=== PATIENT | female | born 1965 | race Caucasian/White ===

== ENCOUNTER → 2017-08-16 15:51 | Outpatient (CLI) | payer OTHER, SELFPAY ==
--- NOTE | 2017-08-16 | DI.CT.S_ITS ---
PROCEDURE: CT ABDOMEN PELVIS W CON INDICATIONS: ABDOMINAL PAIN LEFT LOWER QUADRANT TECHNIQUE: After the administration of oral and intravenous contrast, 5 mm thick sections acquired from the diaphragms to the symphysis. 5 mm thick coronal and sagittal reformats were performed. For radiation dose reduction, the following was used: automated exposure control, adjustment of mA and/or kV according to patient size. COMPARISON: None. FINDINGS: Image quality: Excellent. ABDOMEN: Lung bases: Lung bases are clear. Heart size is normal. Solid organs: Liver is normal in size and enhancement. Gallbladder demonstrates calculi within its lumen, but no evidence of wall thickening, or surrounding inflammation. Biliary system is non-dilated. Pancreas enhances normally. Spleen is normal in size and enhancement. No adrenal nodules. Kidneys are normal in size and enhancement, without hydronephrosis. Peritoneum and bowel: Stomach, small bowel, and colon loops are normal in caliber and wall thickness. No free fluid or air. Appendix not seen. No evidence of appendicitis. Nodes and vessels: No retroperitoneal or mesenteric adenopathy. Aorta and inferior vena cava are normal in caliber. Miscellaneous: No ventral hernias. PELVIS: Genitourinary: Bladder wall thickness is normal. Miscellaneous: No inguinal hernias or adenopathy. Bones: No suspicious bony lesions. No vertebral body compression fractures. IMPRESSION: 1. No acute process. No explanation for left lower quadrant pain. 2. Cholelithiasis. Dictated by: Jose Casas M.D. on 08/16/2017 at 17:26 Approved by: Jose Casas M.D. on 08/16/2017 at 17:28
== END ==
PROVIDERS: PCP Family Medicine; Visit Provider Physician Assistant Medical
DX: R10.32 Left lower quadrant pain (principal); K80.20 Calculus of gallbladder without cholecystitis without obstruction
CPT/HCPCS: 74177; Q9967

== ENCOUNTER 2017-08-17 08:26 | Observation (INO) | payer OTHER, SELFPAY ==
[2017-08-17] VITALS (16 sets, daily range): BP systolic 102–130; BP diastolic 54–69; PULSE 83–90; RESP 13–18; TEMP 37–39.2; O2SAT 94–99; BMI 34.3
--- NOTE | 2017-08-17 08:29 | ED.SKABFB ---
HPI - Skin/Abscess/Foreign Bdy General Chief complaint: Weakness Stated complaint: 'STAPH INFECTION/BLOOD DISEASE' Time Seen by Provider: 08/17/17 08:29 Source: patient Mode of arrival: ambulatory Limitations: no limitations History of Present Illness HPI narrative: 52-year-old female sent in by her primary care doctor's office for concern for a ?blood infection or sepsis ?patient states that approximately 1 week ago a ?boil? on her buttock spontaneously ruptured. She states that it has been worsening over the 3 days prior to that. She states that currently the that site has been improving. She went to see her primary doctor last Wednesday and during that exam apparently had left lower quadrant abdominal pain. Had a CT scan of the abdomen and pelvis with IV and oral contrast performed yesterday which showed cholelithiasis and no other abnormal findings. Patient states she has not been feeling well for the past couple days. Has had a decreased oral intake. Had blood work drawn this morning from the primary doctor it was called by the primary doctor to come in to the emergency department. Related Data Allergies Allergy/AdvReac Type Severity Reaction Status Date / Time erythromycin base Allergy Verified 08/17/17 08:46 Penicillins Allergy Verified 08/17/17 08:46 Review of Systems Constitutional Denies chills, Reports fatigue, Reports fever(s), Denies frequent falls and Reports malaise ENT Ears, Nose, Mouth, and Throat: Denies vertigo and Denies dizziness Cardiovascular Denies chest pain, Denies palpitations and Reports dyspnea Respiratory Reports cough, Reports pain on inspiration, Reports dyspnea and Denies wheezing Gastrointestinal Gastrointestinal: Reports abdominal pain (Abdominal pain a couple days ago but nothing now), Denies change in bowel habits, Denies diarrhea, Denies nausea and Denies vomiting Genitourinary Denies dysuria and Denies flank pain Musculoskeletal Denies myalgias and Denies arthralgias Integumentary/Breasts Comments: ?Boil? on her buttocks which she states is improving Neurologic Denies confusion, Denies vertigo, Denies dizziness and Denies frequent falls Psychiatric Denies confusion Endocrine Reports fatigue and Denies palpitations Hematologic/Lymphatic Denies easy bleeding and Denies easy bruising Allergic/Immunologic Denies wheezing Exam Initial Vital Signs Initial Vital Signs: Vital Signs Temperature 101.5 F H 08/17/17 08:42 Pulse Rate 90 08/17/17 08:42 Respiratory Rate 13 08/17/17 08:42 Blood Pressure 113/60 08/17/17 08:42 Pulse Oximetry 97 08/17/17 08:42 Const General: cooperative, healthy appearing, comfortable, well developed, well groomed and No acute distress Nutritional Appearance: average body habitus Orientation: alert, awake and oriented x3 HENMT Head: normal to inspection, normocephalic and atraumatic Resp Effort & Inspection: normal respiratory effort Auscultation: clear to auscultation bilaterally Cardio Rate: regular rate Rhythm: regular rhythm Pulses: radial pulses present GI Inspection: non-distended Palpation: soft, No firm and No tender Other: Right side buttocks where patient states she had the ?boil in the past looks well. No surrounding erythema. No drainage. No fluctuance. No induration. Back/Spine/Pelvis Back: No CVA tenderness Cervical Spine: cervical ROM normal and No pain with cervical ROM Thoracic/Lumbar Spine: thoracic and lumbar spine normal to inspection Skin Lesions: no lesions Rashes: no rashes Neuro General: alert, awake and oriented x3 Extrem General: normal to inspection and capillary refill normal Course Orders Ordered: ED Orders 08/17/17 08:35 Complete Blood Count AUTO DIFF Stat Comprehensive Metabolic Panel Stat Lactate (Lactic Acid) Stat Lipase Stat Procalcitonin Stat 08/17/17 08:55 XR chest 1V Stat Urine Culture Stat Urine Culture Stat Urine Microscopic Stat EKG-12 Lead Stat 08/17/17 08:58 Blood Culture Stat Ceftriaxone Sodium/Dextrose (Rocephin) 1 gm in 50 mls @ 100 mls/hr IV NOW ONE Stop: 08/17/17 10:39 Last Admin: 08/17/17 10:22 Dose: 100 mls/hr Discontinued Medications Acetaminophen (Tylenol) 650 mg PO NOW ONE Stop: 08/17/17 08:36 Last Admin: 08/17/17 08:45 Dose: 650 mg Sodium Chloride (Normal Saline 0.9%) 1,000 mls @ 1,000 mls/hr IV BOLUS ONE Stop: 08/17/17 09:34 Last Admin: 08/17/17 08:45 Dose: 1,000 mls/hr Vital Signs - 8 hr 08/17/17 08:42 Temperature 101.5 F H Pulse Rate 90 Respiratory Rate 13 Blood Pressure 113/60 Pulse Oximetry 97 MDM - Skin/Abscess/Foreign Bdy Medical Records Attestation: I reviewed the patient's medical records. Lab Data Attestation: I reviewed the patient's lab results. Result diagrams: 08/17/17 08:35 08/17/17 08:35 Lab Results 08/17/17 08/17/17 08/17/17 Range/Units 08:35 08:35 08:35 WBC 12.0 H (4.5-11.0) X10^3/uL RBC 4.15 (4.0-5.2) X10^6/uL Hgb 13.1 (12.0-16.0) g/dL Hct 38.0 (36-46) % MCV 91.6 (80-100) fL MCH 31.4 (26-34) PG MCHC 34.3 (30-36) % RDW 12.7 (11.6-14.8) % Plt Count 217 (150-400) X10^3/uL Neut % (Auto) 94.1 H (50-75) % Lymph % (Auto) 3.2 L (25-40) % [place] % (Auto) 2.4 L (3-14) % Eos % (Auto) 0.1 L (2-4) % Baso % (Auto) 0.2 (0-2) % Neut # (Auto) 57633 H (5420-7004) /uL Sodium (137-145) mmol/L Potassium (3.4-5.1) mmol/L Chloride (98-107) mmol/L Carbon Dioxide (22-32) mmol/L BUN (7-17) mg/dL Creatinine (0.52-1.04) mg/dL Estimated GFR (>60) mL/min BUN/Creatinine Ratio (6-22) Glucose (70-100) mg/dL Lactate 1.1 (0.7-2.1) mmol/L Calcium (8.4-10.2) mg/dL Total Bilirubin (0.2-1.3) mg/dL AST (14-36) IU/L ALT (9-52) IU/L Alkaline Phosphatase (38-126) U/L Total Protein (6.3-8.2) g/dL Albumin (3.5-5.0) g/dL Globulin (1.7-4.1) g/dL Albumin/Globulin Ratio (1.0-2.8) Lipase (23-300) U/L Procalcitonin 5.64 H (<0.5) ng/mL Urine RBC (0-5/HPF) Urine WBC (0-5/HPF) Urine Bacteria (None) Ur Culture Indicated? Micro UA Comment 08/17/17 08/17/17 Range/Units 08:35 08:55 WBC (4.5-11.0) X10^3/uL RBC (4.0-5.2) X10^6/uL Hgb (12.0-16.0) g/dL Hct (36-46) % MCV (80-100) fL MCH (26-34) PG MCHC (30-36) % RDW (11.6-14.8) % Plt Count (150-400) X10^3/uL Neut % (Auto) (50-75) % Lymph % (Auto) (25-40) % [place] % (Auto) (3-14) % Eos % (Auto) (2-4) % Baso % (Auto) (0-2) % Neut # (Auto) (5277-3927) /uL Sodium 128 L (137-145) mmol/L Potassium 3.9 (3.4-5.1) mmol/L Chloride 94 L (98-107) mmol/L Carbon Dioxide 26 (22-32) mmol/L BUN 12 (7-17) mg/dL Creatinine 0.90 (0.52-1.04) mg/dL Estimated GFR > 60.0 (>60) mL/min BUN/Creatinine Ratio 13.3 (6-22) Glucose 255 H (70-100) mg/dL Lactate (0.7-2.1) mmol/L Calcium 8.6 (8.4-10.2) mg/dL Total Bilirubin 0.5 (0.2-1.3) mg/dL AST 63 H (14-36) IU/L ALT 52 (9-52) IU/L Alkaline Phosphatase 64 (38-126) U/L Total Protein 6.8 (6.3-8.2) g/dL Albumin 3.9 (3.5-5.0) g/dL Globulin 2.9 (1.7-4.1) g/dL Albumin/Globulin Ratio 1.3 (1.0-2.8) Lipase 78 (23-300) U/L Procalcitonin (<0.5) ng/mL Urine RBC None seen (0-5/HPF) Urine WBC 5-10/hpf H (0-5/HPF) Urine Bacteria Moderate (10-30) H (None) Ur Culture Indicated? Specimen cultured Micro UA Comment Not Reportable Imaging Data Chest x-ray: Radiologist's impression: PROCEDURE: XR CHEST 1V INDICATIONS: Fever and shortness of breath TECHNIQUE: One view of the chest was acquired. COMPARISON: None. FINDINGS: Surgical changes and devices: None. Lungs and pleura: There may be mild scarring within the left costophrenic angle versus atelectasis. No focal consolidation, effusion, or pneumothorax is evident. Mediastinum: Mediastinal contours appear normal. Heart size is normal. Bones and chest wall: No suspicious bony lesions. Degenerative changes of the shoulders and spine are not well characterized. Overlying soft tissues appear unremarkable. IMPRESSION: No acute cardiopulmonary process is evident. No definite pneumonia. Dictated by: Jim Lester M.D. on 08/17/2017 at 8:32 Approved by: Jim Lester M.D. on 08/17/2017 at 8:33 MDM Narrative Medical decision making narrative: Patient with elevated white blood cell count and fevers. Lactate 1.1. Has not been hypotensive since being here in the emergency department. Urinalysis shows leukocyte esterase and bacteria white blood cell. I suspect that this is the source of her fever/infection. The abscess that she had on her buttocks seems to have resolved. The urinary tract infection could also explain her abdominal pain that she had yesterday. She does not have any flank pain consistent with pyelonephritis. Patient also states that she has been fairly nauseous over the past several days and has not tolerated much oral intake. I feel that given this nausea and the amount of ketone she has in her urine and the elevated white blood cell count in the urine that admission to the hospital for IV antibiotics the diagnosis of urosepsis is warranted. I discussed the case with Dr. Tracy who accepts the patient. Patient was informed of the plan for admission. She is allergic to penicillin but it was GI upset. Was given 1 g Rocephin here in the ER. Patient has been on Bactrim for the past 10 days for the abscess. Discharge Plan Departure Patient Disposition: Admitted As Inpatient Clinical Impression: Urinary tract infection, Sepsis
[2017-08-17] MEDS: ACETAMINOPHEN 325 MG TABLET 650 MG PO ×3 (08:45→23:31)
[2017-08-17] MEDS: SODIUM CHLORIDE 0.9% 1,000 ML 1000 ML IV (08:45)
--- NOTE | 2017-08-17 08:55 | DI.RAD.S_ITS ---
PROCEDURE: XR CHEST 1V INDICATIONS: Fever and shortness of breath TECHNIQUE: One view of the chest was acquired. COMPARISON: None. FINDINGS: Surgical changes and devices: None. Lungs and pleura: There may be mild scarring within the left costophrenic angle versus atelectasis. No focal consolidation, effusion, or pneumothorax is evident. Mediastinum: Mediastinal contours appear normal. Heart size is normal. Bones and chest wall: No suspicious bony lesions. Degenerative changes of the shoulders and spine are not well characterized. Overlying soft tissues appear unremarkable. IMPRESSION: No acute cardiopulmonary process is evident. No definite pneumonia. Dictated by: Jim Lester M.D. on 08/17/2017 at 8:32 Approved by: Jim Lester M.D. on 08/17/2017 at 8:33
[2017-08-17 09:08] LABS: Add Manual Diff / Slide Review NO; Basophils Percent Auto 0.2 % (0-2); Eosinophils Percent Auto 0.1 % (2-4); Hemoglobin 13.1 g/dL (12.0-16.0); Lymphocytes Percent Auto 3.2 % (25-40); Mean Corpuscular HGB Conc 34.3 % (30-36); Mean Corpuscular Hemoglobin 31.4 PG (26-34); Mean Corpuscular Volume 91.6 fL (80-100); Monocytes Percent Auto 2.4 % (3-14); Neutrophils Absolute Auto 11300 /uL (3000-5900); Neutrophils Percent Auto 94.1 % (50-75); Platelet Count 217 X10^3/uL (150-400); Red Blood Cell Count 4.15 X10^6/uL (4.0-5.2); Red Cell Distribution Width 12.7 % (11.6-14.8)
[2017-08-17 09:21] LABS: Lactate (Lactic Acid) 1.1 mmol/L (0.7-2.1)
[2017-08-17 09:22] LABS: Alanine Aminotransferase 52 IU/L (9-52); Albumin 3.9 g/dL (3.5-5.0); Albumin Globulin Ratio 1.3 (1.0-2.8); Alkaline Phosphatase 64 U/L (38-126); Aspartate Aminotransferase 63 IU/L (14-36); BUN Creatinine Ratio 13.3 (6-22); Bilirubin Total 0.5 mg/dL (0.2-1.3); Blood Urea Nitrogen 12 mg/dL (7-17); Calcium 8.6 mg/dL (8.4-10.2); Carbon Dioxide 26 mmol/L (22-32); Chloride 94 mmol/L (98-107); Estimated Glomerular Filt Rate > 60.0 mL/min (>60); Globulin 2.9 g/dL (1.7-4.1); Glucose 255 mg/dL (70-100); HEMOLYSIS < 15 (0-50); Lipase 78 U/L (23-300); Potassium 3.9 mmol/L (3.4-5.1); Sodium 128 mmol/L (137-145); Total Protein 6.8 g/dL (6.3-8.2)
--- NOTE | 2017-08-17 09:37 | PC.NURSE ---
standby for rectal exam by
[2017-08-17 09:45] LABS: Procalcitonin 5.64 ng/mL (<0.5)
[2017-08-17 09:46] LABS: RBC Urine None Seen (0-5/HPF)
[2017-08-17 10:08] LABS: Bacteria Urine Moderate (10-30); WBC Urine 5-10/HPF (0-5/HPF)
[2017-08-17] MEDS: CEFTRIAXONE 1 GM/50 ML FROZ.PIGGY IV (10:22)
--- NOTE | 2017-08-17 10:49 | PC.NURSE ---
Patient keeping clothing and cellphone sending home her watch with a friend
--- NOTE | 2017-08-17 11:14 | PC.NURSE ---
pt is having uti symptoms, temp elevated. antibiotics infusing.
[2017-08-17] MEDS: SODIUM CHLORIDE 0.9% 1,000 ML 100 ML IV ×2 (12:15→18:37)
--- NOTE | 2017-08-17 13:21 | P.HP_ITS ---
History of Present Illness Date Patient Seen: 08/17/17 Time Patient Seen: 12:45 Chief complaint: 'STAPH INFECTION/BLOOD DISEASE' Narrative: 52-year-old female, patient of Dr. Cat Morgan who was brought to the [facility] Emergency Room by her friend for fever and weakness. She noticed a painful lump in her perineum recently. She was seen at her doctor 's office about 8 days ago. She was told the lesion was not ready to have surgical I&D. She was put on oral Bactrim. The lesion started spontaneously draining about 7 days ago. She has been feeling weak for the past 3 days. She also has been having fever. She was seen by KAROLINA Lopez at the clinic yesterday. Abdominal CT scan was ordered due to her having left-sided abdominal pain. Abdominal CT scan did not reveal the source of her fever. She was incidentally found to have gallstones without signs of cholecystitis. She continued to have fever up to 102 last night. She also started nausea and vomiting around 11:00 p.m. last night. She again vomited this morning. She has not been eating since 3 days ago. Her weakness has progressively gotten worse. Her friend brought her to the [facility] Emergency Room this morning. She was found to have pyuria on urinalysis. Her white blood cell count was elevated as well. She received IV ceftriaxone and was admitted to the medicine floor for urinary tract infection with sepsis. Patient History Comment: Type 2 diabetes, diet controlled. Her last hemoglobin A1c was 7.0 History of right ACL repair Remote history of urinary tract infection Family & Social History Comment: Social history: She is single and has no children. She works in sales. She denies alcohol drinking or cigarette smoking. Family history father had heart disease, thyroid disease, and liver disease. Mother is healthy and alive. Meds Home Medications Medication Instructions Recorded Confirmed Type Fish Oil 1 cap PO DAILY 08/17/17 08/17/17 History Vitamin C 1 tab PO DAILY 08/17/17 08/17/17 History Vitamin D3 1 cap PO DAILY 08/17/17 08/17/17 History calcium carb-magnesium carb 1 tab PO DAILY 08/17/17 08/17/17 History evening primrose oil 1 cap PO DAILY 08/17/17 08/17/17 History multivitamin 1 tab PO DAILY 08/17/17 08/17/17 History [id number] 1 tab PO DAILY 08/17/17 08/17/17 History [Immune Support] sulfamethoxazole-trimethoprim 1 tab PO BID 08/17/17 08/17/17 History Allergies Allergy/AdvReac Type Severity Reaction Status Date / Time erythromycin base Allergy Verified 08/17/17 08:46 Penicillins Allergy Verified 08/17/17 08:46 Review of Systems Constitutional Constitutional: Reports chills, Reports fatigue, Reports fever(s), Reports headache(s) and Reports weakness ENT Ears, Nose, Mouth, and Throat: Yes headache(s) Cardiovascular Comments: No chest pain or shortness of breath Respiratory Comments: Denies cough Gastrointestinal Gastrointestinal: Reports abdominal pain, Reports nausea and Reports vomiting Genitourinary Comments: Denies urinary frequency or urgency Musculoskeletal Musculoskeletal: Reports back pain Neurologic Neurologic: Reports headache(s) and Reports weakness Endocrine Endocrine: Reports fatigue Exam Vital Signs (past 8 hours): - 08/17/17 08:42 08/17/17 10:46 08/17/17 11:04 Temperature 101.5 F H 102.2 F H Pulse Rate 90 88 Respiratory Rate 13 14 Blood Pressure 113/60 Blood Pressure [Left Arm] 106/54 L Pulse Oximetry 97 94 08/17/17 11:06 08/17/17 12:20 Temperature 102.2 F H 99.2 F Pulse Rate 86 Respiratory Rate 16 Blood Pressure 102/58 L Blood Pressure [Left Arm] Pulse Oximetry 94 Oxygen Delivery Method Room Air Narrative Exam Narrative: GENERAL: Middle-age woman who was slightly lethargic HEENT: Head normocephalic, atraumatic. Eyes pupils equal round NECK: Supple, no JVD, CHEST: Breath sounds equal bilaterally, no wheezes rales or rhonchi. CARDIAC: Regular rate and rhythm without murmurs, rubs or gallops. ABDOMEN: Soft, mild the left lower quadrant tenderness. Normoactive bowel sounds all 4 quadrants. No guarding or rebound. Perineum: Mild soft tissue swelling over the right Bartholin cyst. No active purulent drainage or localized tenderness on palpation EXTREMITIES: Normal range of motion, no clubbing or edema. NEUROLOGICAL: Lethargic, arousable with verbal stimuli and oriented; Normal muscle strength. SKIN: Warm, dry, no petechiae, no rashes or lesions. Objective Imaging CT scan - abdomen: Radiologist's impression: Lung bases: Lung bases are clear. Heart size is normal. Solid organs: Liver is normal in size and enhancement. Gallbladder demonstrates calculi within its lumen, but no evidence of wall thickening, or surrounding inflammation. Biliary system is non-dilated. Pancreas enhances normally. Spleen is normal in size and enhancement. No adrenal nodules. Kidneys are normal in size and enhancement, without hydronephrosis. Peritoneum and bowel: Stomach, small bowel, and colon loops are normal in caliber and wall thickness. No free fluid or air. Appendix not seen. No evidence of appendicitis. Nodes and vessels: No retroperitoneal or mesenteric adenopathy. Aorta and inferior vena cava are normal in caliber. Miscellaneous: No ventral hernias. PELVIS: Genitourinary: Bladder wall thickness is normal. Miscellaneous: No inguinal hernias or adenopathy. Bones: No suspicious bony lesions. No vertebral body compression fractures. Chest x-ray: Radiologist's impression: No acute cardiopulmonary process is evident. No definite pneumonia. Labs Result Diagrams: 08/17/17 08:35 08/17/17 08:35 Labs: Laboratory Results - last 24 hr 08/17/17 08/17/17 08/17/17 08:35 08:35 08:35 WBC 12.0 H RBC 4.15 Hgb 13.1 Hct 38.0 MCV 91.6 MCH 31.4 MCHC 34.3 RDW 12.7 Plt Count 217 Neut % (Auto) 94.1 H Lymph % (Auto) 3.2 L [place] % (Auto) 2.4 L Eos % (Auto) 0.1 L Baso % (Auto) 0.2 Neut # (Auto) 98378 H Sodium Potassium Chloride Carbon Dioxide BUN Creatinine Estimated GFR BUN/Creatinine Ratio Glucose Lactate 1.1 Calcium Total Bilirubin AST ALT Alkaline Phosphatase Total Protein Albumin Globulin Albumin/Globulin Ratio Lipase Procalcitonin 5.64 H Urine RBC Urine WBC Urine Bacteria Ur Culture Indicated? Micro UA Comment 08/17/17 08/17/17 08:35 08:55 WBC RBC Hgb Hct MCV MCH MCHC RDW Plt Count Neut % (Auto) Lymph % (Auto) [place] % (Auto) Eos % (Auto) Baso % (Auto) Neut # (Auto) Sodium 128 L Potassium 3.9 Chloride 94 L Carbon Dioxide 26 BUN 12 Creatinine 0.90 Estimated GFR > 60.0 BUN/Creatinine Ratio 13.3 Glucose 255 H Lactate Calcium 8.6 Total Bilirubin 0.5 AST 63 H ALT 52 Alkaline Phosphatase 64 Total Protein 6.8 Albumin 3.9 Globulin 2.9 Albumin/Globulin Ratio 1.3 Lipase 78 Procalcitonin Urine RBC None seen Urine WBC 5-10/hpf H Urine Bacteria Moderate (10-30) H Ur Culture Indicated? Cash Application Clerk Micro UA Comment Not Reportable Assessment & Plan Plan: Assessment/Plan Narrative: 1. Probable pyelonephritis: He was started on IV ceftriaxone. We will follow urine culture result. Continue IV ceftriaxone. Start IV normal saline at 100 cc an hour. 2. Sepsis secondary to urinary tract infection: She had fever of 102, tachycardia, leukocytosis, and lethargy. We will treat the underlying cause. Start gentle IV hydration. 3. Type 2 diabetes: She was on diet control prior to hospital admission. We will continue diabetic diet. We will check her fingerstick glucose readings and use sliding scale insulin as needed. 4. Recent right Bartholin cyst infection: She was treated with oral Bactrim. Her infection seemed to be resolving spontaneously. No further intervention is needed at this time.
--- NOTE | 2017-08-17 15:05 | PC.NURSE ---
Pt to floor around 1115. she is a&ox3. temp down to 99.0. up with sba to use the bathroom. Pt resting comfortably. Voided. She has ns at 100cc/hr infusing. friend is at bedside.
[2017-08-17] MEDS: INSULIN ASPART 100 UNIT/ML INSULN PEN SUBCUT (15:56)
[2017-08-18] VITALS (12 sets, daily range): BP systolic 101–124; BP diastolic 60–69; PULSE 82–108; RESP 12–19; TEMP 36.8–38.5; O2SAT 96–99
[2017-08-18] MEDS: SODIUM CHLORIDE 0.9% 1,000 ML 100 ML IV (04:19)
[2017-08-18] MEDS: ACETAMINOPHEN 325 MG TABLET 650 MG PO ×3 (05:34→20:15)
[2017-08-18 06:14] LABS: Add Manual Diff / Slide Review NO; Basophils Percent Auto 0.5 % (0-2); Eosinophils Percent Auto 2.9 % (2-4); Hematocrit 37.6 % (36-46); Hemoglobin 12.9 g/dL (12.0-16.0); Lymphocytes Percent Auto 8.5 % (25-40); Mean Corpuscular HGB Conc 34.4 % (30-36); Mean Corpuscular Hemoglobin 31.9 PG (26-34); Mean Corpuscular Volume 92.6 fL (80-100); Monocytes Percent Auto 2.5 % (3-14); Neutrophils Absolute Auto 6600 /uL (3000-5900); Neutrophils Percent Auto 85.6 % (50-75); Platelet Count 173 X10^3/uL (150-400); Red Blood Cell Count 4.06 X10^6/uL (4.0-5.2); Red Cell Distribution Width 13.1 % (11.6-14.8); White Blood Cell Count 7.7 X10^3/uL (4.5-11.0)
[2017-08-18 06:19] LABS: BUN Creatinine Ratio 14.3 (6-22); Blood Urea Nitrogen 10 mg/dL (7-17); Calcium 8.4 mg/dL (8.4-10.2); Carbon Dioxide 26 mmol/L (22-32); Chloride 101 mmol/L (98-107); Estimated Glomerular Filt Rate > 60.0 mL/min (>60); Glucose 153 mg/dL (70-100); HEMOLYSIS < 15 (0-50); Potassium 4.3 mmol/L (3.4-5.1); Sodium 134 mmol/L (137-145)
[2017-08-18] MEDS: INSULIN ASPART 100 UNIT/ML INSULN PEN SUBCUT ×4 (08:42→22:08)
[2017-08-18] MEDS: MULTIVITAMIN 1 TABLET 1 TAB PO (08:44)
--- NOTE | 2017-08-18 09:09 | CM.DANOTE ---
DCP: Case received, EMR reviewed and met with patient. Introduced self and role. DCP template completed with info currently available. Pt is a 52 year old female who admitted yeterday morning to the care of the hospitalist team. PCP: Dr. Sophie Pineda confirmed: [facility]. Pt carries diagnosis of UTI/Sepsis. Pt. currently lives alone at home, and is independent. P: Continue to check in with hospitalist to discuss plan of discharge. Carito Carmona RN/business analyst manager
--- NOTE | 2017-08-18 09:42 | PC.NURSE ---
Assess- Pt slept in this morning, up to bathroom and voided 700cc of dark yellow/jose ramon urine. She denies dysuria and has no blood in urine. Encouraged to drink more fluids and water. Pts skin is clear, vss and bs 163. Pt sitting up in chair for a bit after eating breakfast. Voices no complaints of pain at this time.
[2017-08-18] MEDS: ALBUTEROL 2.5 MG/3 ML NEB (ADULT) INH ×2 (09:56→18:58)
--- NOTE | 2017-08-18 09:57 | PM.PN.1 ---
Subjective Date Patient Seen: 08/18/17 Time Patient Seen: 09:30 Interval history: Patient still had fever up to 102 last night. She was also having shaking chills and felt warm subsequently. She had improvement of her appetite. She was able to eat part of her dinner and breakfast. She still feels quite weak. She also has headache. The Tylenol and ice pack seem to help with her headache. She denies abdominal pain. She has mild shortness of breath. Exam Vital Signs (past 8 hours): - 08/18/17 05:34 08/18/17 07:00 08/18/17 08:00 Temperature 100.9 F H 98.7 F Pulse Rate 97 H 82 Respiratory Rate 16 16 Blood Pressure 124/69 H 101/60 Pulse Oximetry 96 96 96 Oxygen Delivery Method Room Air Oxygen Flow Rate 0 Narrative Exam Narrative: General: Middle-age woman who was slightly lethargic HEENT: Mild conjunctival edema. Lungs: Clear to auscultation bilaterally Heart: Regular rhythm, no murmur appreciated Abdomen: Soft, nontender Extremities: No pitting edema Objective Labs Result Diagrams: 08/18/17 05:50 08/18/17 05:50 Labs: Laboratory Results - last 24 hr 08/17/17 08/18/17 08/18/17 08:55 05:50 05:50 WBC 7.7 RBC 4.06 Hgb 12.9 Hct 37.6 MCV 92.6 MCH 31.9 MCHC 34.4 RDW 13.1 Plt Count 173 Neut % (Auto) 85.6 H Lymph % (Auto) 8.5 L [place] % (Auto) 2.5 L Eos % (Auto) 2.9 Baso % (Auto) 0.5 Neut # (Auto) 6600 H Sodium 134 L Potassium 4.3 Chloride 101 Carbon Dioxide 26 BUN 10 Creatinine 0.70 Estimated GFR > 60.0 BUN/Creatinine Ratio 14.3 Glucose 153 H D Calcium 8.4 Urine RBC None seen Urine WBC 5-10/hpf H Urine Bacteria Moderate (10-30) H Ur Culture Indicated? Critical Care Nurse Micro UA Comment Not Reportable Assessment & Plan Plan: Assessment/Plan Narrative: 1. Probable pyelonephritis: Urinalysis did show pyuria. Urine culture grew mixed mihir.. Continue IV ceftriaxone 1 g Q 24 hr. Discontinue IV fluid 2. Sepsis secondary to urinary tract infection: She had fever of 102, tachycardia, leukocytosis, and lethargy. We will treat the underlying cause. Discontinue IV fluid 3. Type 2 diabetes: She was on diet control prior to hospital admission. Her fingerstick glucose readings were initially in the 200s. Subsequent glucose reading was around 165. I have discussed with her about starting an oral medication for diabetes. She would like to continue lifestyle modifications. She fell she has made progress with her glycemic control. Her hemoglobin A1c initially was 11. She was able to bring it down to 7/6 months. We will continue diabetic diet. We will check her fingerstick glucose readings and use sliding scale insulin as needed. 4. Recent right Bartholin cyst infection: She was treated with oral Bactrim. Her infection seemed to be resolving spontaneously. No further intervention is needed at this time. 5. DVT prophylaxis: Encourage ambulation. Start low dose Lovenox for DVT prophylaxis. 6. Disposition: Discharge home when she is medically more stable. Quality VTE Deep Vein Thrombosis/Pulmonary Embolism Present on Admission: Yes
[2017-08-18] MEDS: CEFTRIAXONE 1 GM/50 ML FROZ.PIGGY IV (09:59)
[2017-08-18] MEDS: ENOXAPARIN 40 MG/0.4 ML SYRINGE SUBCUT (11:30)
[2017-08-19] VITALS (14 sets, daily range): BP systolic 101–133; BP diastolic 56–78; PULSE 75–97; RESP 14–20; TEMP 36.6–37.6; O2SAT 93–98
[2017-08-19] MEDS: ACETAMINOPHEN 325 MG TABLET 650 MG PO ×2 (02:11→16:42)
--- NOTE | 2017-08-19 07:48 | CM.URPRONOTE ---
CM UR Physician Consult Note Narrative: Utilitation Review Physician Consult Note Summary of Care: 52 yo female admitted and treated for pyelonephritis. She does not meet criteria for sepsis using Sepsis 3 criteria. Recommendations: Recommend not to use diagnosis code for sepsis. Lv Melendez MD (PLEASE NOTE): This report may have been all or partially generated using a voice recognition software program. While every effort has been made to edit content upon its completion, model maker plaster errors may occur. Please contact the [facility] Can Labeler Service Department at if there are any questions, or if further clarification is necessitated.
--- NOTE | 2017-08-19 07:52 | CONS_ITS ---
CM UR Physician Consult Note Narrative: Utilitation Review Physician Consult Note Summary of Care: 52 yo female admitted and treated for pyelonephritis. She does not meet criteria for sepsis using Sepsis 3 criteria. Recommendations: Recommend not to use diagnosis code for sepsis. Lv Melendez MD (PLEASE NOTE): This report may have been all or partially generated using a voice recognition software program. While every effort has been made to edit content upon its completion, data services developer errors may occur. Please contact the [facility] Business Librarian Service Department at if there are any questions, or if further clarification is necessitated.
[2017-08-19] MEDS: ENOXAPARIN 40 MG/0.4 ML SYRINGE SUBCUT (09:19)
[2017-08-19] MEDS: SODIUM CHLORIDE 0.9% FLUSH 10 ML IV ×2 (09:20→20:54)
[2017-08-19] MEDS: MULTIVITAMIN 1 TABLET 1 TAB PO (09:20)
[2017-08-19] MEDS: INSULIN ASPART 100 UNIT/ML INSULN PEN SUBCUT ×4 (09:21→20:54)
[2017-08-19] MEDS: ALBUTEROL 2.5 MG/3 ML NEB (ADULT) INH (10:06)
[2017-08-19] MEDS: CEFTRIAXONE 1 GM/50 ML FROZ.PIGGY IV (11:45)
[2017-08-19] MEDS: SODIUM CHLORIDE 0.9% 250 ML 21 ML IV (11:46)
[2017-08-19] MEDS: FUROSEMIDE 40 MG/4 ML VIAL IV (12:07)
--- NOTE | 2017-08-19 13:39 | PM.PN.1 ---
Subjective Date Patient Seen: 08/19/17 Time Patient Seen: 13:10 Interval history: The patient was mildly short of breath this morning, and noted to be volume overload, administered 40 mg of IV furosemide. She states her breathing seems improved, noting she has a tendency to asthma as well, but feels this is controlled. She is mildly confused about recent events and timing, which her friend Serina at bedside clarifies, and overall states persistent headache but feeling better. Exam Vital Signs (past 8 hours): - 08/19/17 08:00 08/19/17 10:06 08/19/17 11:30 Temperature 99.1 F 98.9 F Pulse Rate 83 92 H 97 H Respiratory Rate 18 14 20 Blood Pressure 113/60 133/76 H Pulse Oximetry 98 97 93 Oxygen Delivery Method Room Air Oxygen Flow Rate 0 Narrative Exam Narrative: General: Alert, pleasant, mildly anxious, no apparent respiratory distress HEENT: Pupils equal round reactive, extraocular movements intact, mucous membranes pink and moist Neck: Supple Lungs: Bibasilar crackles, otherwise clear to auscultation Cardiac: Regular rate and rhythm without appreciable murmur, rub or gallop Abdomen: Soft, nontender, nondistended Back: New no costovertebral angle tenderness Extremities: No edema Neurologic: Alert, oriented to person, time and place, pleasant, full motor and sensory, no focal deficits Objective Labs Result Diagrams: 08/18/17 05:50 08/18/17 05:50 Assessment & Plan Plan: Assessment/Plan Narrative: 1. Sepsis, possibly due to pyelonephritis: Urinalysis did show pyuria with culture growing mixed mihir only. Continue IV ceftriaxone 1 g Q 24 hr. Discontinue IV fluid. 2. Sepsis: She had fever of 102, tachycardia, leukocytosis, and lethargy. We will treat the underlying cause. Discontinue IV fluid. Recheck blood cultures, sed rate, C reactive protein. 3. Type 2 diabetes: She was on diet control prior to hospital admission. Her fingerstick glucose readings were initially in the 200s. Subsequent glucose reading was around 182. She would like to continue lifestyle modifications and not start oral medication at this point, noting her recent hemoglobin A1c is down to 7% (from 11%). Continue diabetic diet and sliding scale insulin as needed. 4. Recent right Bartholin cyst infection: She was treated with oral Bactrim. Her infection seemed to be resolving spontaneously. No further intervention is needed at this time. 5. DVT prophylaxis: Encourage ambulation. Low dose Lovenox for DVT prophylaxis. 6. Disposition: Discharge home when she is medically more stable. Quality VTE Deep Vein Thrombosis/Pulmonary Embolism Present on Admission: Yes
--- NOTE | 2017-08-19 13:45 | P.PN_ITS ---
Subjective Date Patient Seen: 08/19/17 Time Patient Seen: 13:10 Interval history: The patient was mildly short of breath this morning, and noted to be volume overload, administered 40 mg of IV furosemide. She states her breathing seems improved, noting she has a tendency to asthma as well, but feels this is controlled. She is mildly confused about recent events and timing , which her friend Serina at bedside clarifies, and overall states persistent headache but feeling better. Exam Vital Signs (past 8 hours): - 08/19/17 08:00 08/19/17 10:06 08/19/17 11:30 Temperature 99.1 F 98.9 F Pulse Rate 83 92 H 97 H Respiratory Rate 18 14 20 Blood Pressure 113/60 133/76 H Pulse Oximetry 98 97 93 Oxygen Delivery Method Room Air Oxygen Flow Rate 0 Narrative Exam Narrative: General: Alert, pleasant, mildly anxious, no apparent respiratory distress HEENT: Pupils equal round reactive, extraocular movements intact, mucous membranes pink and moist Neck: Supple Lungs: Bibasilar crackles, otherwise clear to auscultation Cardiac: Regular rate and rhythm without appreciable murmur, rub or gallop Abdomen: Soft, nontender, nondistended Back: New no costovertebral angle tenderness Extremities: No edema Neurologic: Alert, oriented to person, time and place, pleasant, full motor and sensory, no focal deficits Objective Labs Result Diagrams: 08/18/17 05:50 08/18/17 05:50 Assessment & Plan Plan: Assessment/Plan Narrative: 1. Sepsis, possibly due to pyelonephritis: Urinalysis did show pyuria with culture growing mixed mihir only. Continue IV ceftriaxone 1 g Q 24 hr. Discontinue IV fluid. 2. Sepsis: She had fever of 102, tachycardia, leukocytosis, and lethargy. We will treat the underlying cause. Discontinue IV fluid. Recheck blood cultures , sed rate, C reactive protein. 3. Type 2 diabetes: She was on diet control prior to hospital admission. Her fingerstick glucose readings were initially in the 200s. Subsequent glucose reading was around 182. She would like to continue lifestyle modifications and not start oral medication at this point, noting her recent hemoglobin A1c is down to 7% (from 11%). Continue diabetic diet and sliding scale insulin as needed. 4. Recent right Bartholin cyst infection: She was treated with oral Bactrim. Her infection seemed to be resolving spontaneously. No further intervention is needed at this time. 5. DVT prophylaxis: Encourage ambulation. Low dose Lovenox for DVT prophylaxis. 6. Disposition: Discharge home when she is medically more stable. Quality VTE Deep Vein Thrombosis/Pulmonary Embolism Present on Admission: Yes
[2017-08-19 15:10] LABS: Procalcitonin 3.26 ng/mL (<0.5)
[2017-08-19 15:30] LABS: Erythrocyte Sedimentation Rate 56 MM/HR (0-20)
[2017-08-19 16:04] LABS: C-Reactive Protein Quant 17.1 mg/dL (<1.0)
[2017-08-19 17:07] LABS: Appearance Urine UA CLEAR; Bilirubin Urine UA NEGATIVE (NEGATIVE); Color Urine UA YELLOW; Glucose Urine UA NEGATIVE (Normal); Ketones Urine UA NEGATIVE (NEGATIVE); Leukocyte Esterase Urine UA NEGATIVE (NEGATIVE); Nitrite Urine UA Negative (Negative); Occult Blood Urine UA NEGATIVE (Negative); Protein Urine UA NEGATIVE (Negative); Specific Gravity Urine UA <=1.005 (1.000-1.035); Urobilinogen Urine UA 0.2 E.U./dL (0.2)
[2017-08-19 17:20] LABS: RBC Urine 0-1/HPF (0-5/HPF); Squamous Epithelial Cell Urine 0-1 /HPF; WBC Urine 0-1/HPF (0-5/HPF)
[2017-08-19 17:21] LABS: Bacteria Urine Few (2-10); Culture Indicated Urine Cult Not Indicated
--- NOTE | 2017-08-19 17:44 | PC.NURSE ---
Addendum entered by Jayshree Carmona R.N. 08/19/17 17:47: lung sounds are clear, patient observed to have dry, non-productive cough. Original Note: patient is a&ox4, 93% on ra, and rates her pain 6/10 for headache, tylenol effective. patient states she feels SOB and that she is baseline asthmatic. patient states she feels a little dizzy when she stands up, that it hurts to breathe. UA has been collected and sent to lab for analysis. blood glucose was 172 before dinner. patient able to ambulate safely sba to br and voided successfully 300 ml. replenished ice pack, call light in reach. temp is 99.7 at 1630. will continue to monitor.
[2017-08-20 05:00] VITALS: BP 112/71; PULSE 75; RESP 16; TEMP 36.7; O2SAT 94
[2017-08-20 05:43] LABS: Add Manual Diff / Slide Review NO; Basophils Percent Auto 0.6 % (0-2); Eosinophils Percent Auto 7.5 % (2-4); Hematocrit 34.2 % (36-46); Hemoglobin 11.7 g/dL (12.0-16.0); Lymphocytes Percent Auto 33.8 % (25-40); Mean Corpuscular HGB Conc 34.3 % (30-36); Mean Corpuscular Hemoglobin 31.4 PG (26-34); Mean Corpuscular Volume 91.6 fL (80-100); Monocytes Percent Auto 5.2 % (3-14); Neutrophils Absolute Auto 2900 /uL (3000-5900); Neutrophils Percent Auto 52.9 % (50-75); Platelet Count 202 X10^3/uL (150-400); Red Blood Cell Count 3.73 X10^6/uL (4.0-5.2); Red Cell Distribution Width 12.6 % (11.6-14.8); White Blood Cell Count 5.5 X10^3/uL (4.5-11.0)
[2017-08-20 06:00] LABS: Alanine Aminotransferase 157 IU/L (9-52); Albumin 3.3 g/dL (3.5-5.0); Albumin Globulin Ratio 1.2 (1.0-2.8); Alkaline Phosphatase 143 U/L (38-126); Aspartate Aminotransferase 97 IU/L (14-36); Bilirubin Total 0.7 mg/dL (0.2-1.3); Blood Urea Nitrogen 12 mg/dL (7-17); Calcium 8.7 mg/dL (8.4-10.2); Carbon Dioxide 29 mmol/L (22-32); Chloride 100 mmol/L (98-107); Estimated Glomerular Filt Rate > 60.0 mL/min (>60); Globulin 2.8 g/dL (1.7-4.1); Glucose 183 mg/dL (70-100); HEMOLYSIS < 15 (0-50); Potassium 3.6 mmol/L (3.4-5.1); Sodium 138 mmol/L (137-145); Total Protein 6.1 g/dL (6.3-8.2)
[2017-08-20 07:00] VITALS: O2SAT 92
[2017-08-20 08:00] VITALS: BP 112/68; PULSE 80; RESP 18; TEMP 36.4; O2SAT 92
[2017-08-20] MEDS: MULTIVITAMIN 1 TABLET 1 TAB PO (08:59)
[2017-08-20] MEDS: INSULIN ASPART 100 UNIT/ML INSULN PEN SUBCUT (09:00)
[2017-08-20] MEDS: SODIUM CHLORIDE 0.9% FLUSH 10 ML IV (09:00)
--- NOTE | 2017-08-20 09:06 | CM.DPC ---
DCP: continued: Case received, EMR reviewed, discussed case with Dr. Chino, reviewed [facility] notes re financial options for insurance deductible ($[id number]) and met with pt. Introduced self and role. Pt says she is finally feeling better, hopes for home today. Dr. Chino has not yet been in but anticipates same. Pt's primary concern while here has been her high insurance deductible. Went over the forms she was given by [employer] with focus on the [employer] form specific for assist with premium costs and showed her the toll free number to call for further information. Pt expresses thankfulness for same. Notes she has a good job and can basically support herself but this deductible is not manageable for her. Pt to home, likely today. Her friend is transporting her.
--- NOTE | 2017-08-20 09:29 | PM.DS.1 ---
History of Present Illness Date Patient Seen: 08/20/17 Time Patient Seen: 09:15 Chief complaint: 'STAPH INFECTION/BLOOD DISEASE' Narrative: 52-year-old female, patient of Dr. Cat Morgan who was brought to the [facility] Emergency Room by her friend for fever and weakness. She noticed a painful lump in her perineum recently. She was seen at her doctor's office about 8 days ago. She was told the lesion was not ready to have surgical I&D. She was put on oral Bactrim. The lesion started spontaneously draining about 7 days ago. She has been feeling weak for the past 3 days. She also has been having fever. She was seen by KAROLINA Lopez at the clinic yesterday. Abdominal CT scan was ordered due to her having left-sided abdominal pain. Abdominal CT scan did not reveal the source of her fever. She was incidentally found to have gallstones without signs of cholecystitis. She continued to have fever up to 102 last night. She also started nausea and vomiting around 11:00 p.m. last night. She again vomited this morning. She has not been eating since 3 days ago. Her weakness has progressively gotten worse. Her friend brought her to the [facility] Emergency Room this morning. She was found to have pyuria on urinalysis. Her white blood cell count was elevated as well. She received IV ceftriaxone and was admitted to the medicine floor for urinary tract infection with sepsis. Discharge Providers Date of admission: 08/17/17 10:39 Primary care physician: Cat Barrios DO Consults: 08/18/17 05:45 Consult to Respiratory Therapy Evaluate & Treat Comment: Physician Instructions: Evaluate and treat 08/18/17 19:35 Consult to Dietitian, Adult Routine Comment: Reason For Exam: diabetes control Discharge provider: Ayden Chino MD Summary Discharge Diagnosis: 1. Sepsis, with presenting fever, tachycardia, leukocytosis and lethargy, resolved, possibly due to pyelonephritis, culture negative versus recently infected draining Bartholin cyst 2. Diabetes mellitus, type 2 3. Abnormal liver function tests, likely reactive Procedures: 1. Abdominal and pelvis CT: No acute process. No explanation for left lower quadrant pain. Cholelithiasis. 2. Chest x-ray: No acute cardiopulmonary process is evident. No definite pneumonia. Hospital Course: The patient was admitted and treated with broad-spectrum IV antibiotics. She defervesced, with improvement in leukocytosis and resolution of tachycardia, headache and lethargy. The site of her Bartholin's gland infection appeared to be resolved. Procalcitonin was elevated on admission but decreased from 5.64 on admission to 3.26 2 days later, with sed rate 56 and C reactive protein 17.1, and multiple negative blood cultures and urine culture. Hyperglycemia was controlled with sliding scale insulin during hospitalization. The patient did not wish addition of medications. Liver function tests were mildly elevated at the time of discharge with normal bilirubin, and recent normal workup for gallbladder disease, and outpatient follow-up is advised with repeat liver function tests in follow-up with her primary care provider in 3-5 days. She is discharged home on oral cefuroxime 500 mg twice daily for 7 more days. Status at Discharge Functional status at discharge: independent ambulation Overall status at discharge: patient is back to baseline Time Spent with Patient Greater than 30 minutes Exam Vital Signs (past 8 hours): - 08/20/17 05:00 08/20/17 08:00 Temperature 98.1 F 97.5 F L Pulse Rate 75 80 Respiratory Rate 16 18 Blood Pressure 112/71 112/68 Pulse Oximetry 94 92 Oxygen Delivery Method Room Air Oxygen Flow Rate 0 Narrative Exam Narrative: General: Alert, pleasant, appears comfortable HEENT: Pupils equal round reactive, extraocular movements intact, normal conjunctiva, canals clear, TMs without injection, no hemotympanum, nasal mucosa with mild erythema, oropharynx benign Neck: Supple without adenopathy Lungs: Clear to auscultation Cardiac: Regular rate and rhythm without appreciable murmur Abdomen: Soft, nontender, nondistended Extremities: Without edema, no tap tenderness or swelling Dermatologic: No rash or skin lesions evident Neurologic: Alert, oriented, no nuchal rigidity, neck supple, mentation intact, speech fluent, full upper and lower motor strength and no sensory deficits Objective Labs Result Diagrams: 08/20/17 05:20 08/20/17 05:20 Labs: Laboratory Results - last 24 hr 08/19/17 08/19/17 08/19/17 14:20 14:20 14:20 WBC RBC Hgb Hct MCV MCH MCHC RDW Plt Count Neut % (Auto) Lymph % (Auto) [place] % (Auto) Eos % (Auto) Baso % (Auto) Neut # (Auto) ESR 56 H Sodium Potassium Chloride Carbon Dioxide BUN Creatinine Estimated GFR BUN/Creatinine Ratio Glucose Calcium Total Bilirubin AST ALT Alkaline Phosphatase C-Reactive Protein 17.1 H Total Protein Albumin Globulin Albumin/Globulin Ratio Procalcitonin 3.26 H Urine Color Urine Appearance Urine pH Ur Specific [place] Urine Protein Urine Glucose (UA) Urine Ketones Urine Occult Blood Urine Nitrate Urine Bilirubin Urine Urobilinogen Ur Leukocyte Esterase Urine RBC Urine WBC Ur Squamous Epith Cells Urine Bacteria Ur Culture Indicated? Micro UA Comment 08/19/17 08/20/17 08/20/17 16:22 05:20 05:20 WBC 5.5 RBC 3.73 L Hgb 11.7 L Hct 34.2 L MCV 91.6 MCH 31.4 MCHC 34.3 RDW 12.6 Plt Count 202 Neut % (Auto) 52.9 D Lymph % (Auto) 33.8 D [place] % (Auto) 5.2 Eos % (Auto) 7.5 H Baso % (Auto) 0.6 Neut # (Auto) 2900 L ESR Sodium 138 Potassium 3.6 Chloride 100 Carbon Dioxide 29 BUN 12 Creatinine 0.60 Estimated GFR > 60.0 BUN/Creatinine Ratio 20.0 Glucose 183 H Calcium 8.7 Total Bilirubin 0.7 AST 97 H ALT 157 H Alkaline Phosphatase 143 H D C-Reactive Protein Total Protein 6.1 L Albumin 3.3 L Globulin 2.8 Albumin/Globulin Ratio 1.2 Procalcitonin Urine Color Yellow Urine Appearance Clear Urine pH 6.0 Ur Specific [place] <=1.005 Urine Protein Negative Urine Glucose (UA) Negative Urine Ketones Negative Urine Occult Blood Negative Urine Nitrate Negative Urine Bilirubin Negative Urine Urobilinogen 0.2 Ur Leukocyte Esterase Negative Urine RBC 0-1/hpf Urine WBC 0-1/hpf Ur Squamous Epith Cells 0-1 /hpf Urine Bacteria Few (2-10) H Ur Culture Indicated? Cult not indicated Micro UA Comment Not Reportable Discharge Plan Discharge Plan Patient Disposition: Home, Self-Care Provider Discharge Instructions Diet: Regular and Carb-consistent/Diabetic Wound Care Report to your healthcare provider any signs of infection, such as:: chills, fever, night sweats, increased pain and unusual drainage Discharge Data Primary Care Provider: Cat Barrios Attending Provider: Concha Tracy Admit Date/Time: 08/17/17 10:39 Quality VTE Deep Vein Thrombosis/Pulmonary Embolism Present on Admission: Yes
[2017-08-20] MEDS: cefUROXime 250 MG TABLET 500 MG PO (10:50)
== END 2017-08-20 11:46 | disposition home or self-care (01) | DRG 690 ==
LOC: ED 10:32 → AC 14:43
PROVIDERS: Internal Medicine; Admitting Provider Internal Medicine; Emergency Provider Emergency Medicine; PCP Family Medicine; Visit Provider Internal Medicine
DX: R53.1 Weakness (principal); N12 Tubulo-interstitial nephritis, not specified as acute or chronic; N39.0 Urinary tract infection, site not specified; R10.32 Left lower quadrant pain; R50.9 Fever, unspecified; E87.1 Hypo-osmolality and hyponatremia; N75.0 Cyst of Bartholin's gland; K80.20 Calculus of gallbladder without cholecystitis without obstruction; R94.5 Abnormal results of liver function studies; E11.65 Type 2 diabetes mellitus with hyperglycemia
CPT/HCPCS: 36415; 36591; 71045; 74177; 80048; 80053; 81001; 81003; 81015; 81025; 82962; 83605; 83690; 84145; 85025; 85651; 86140; 87040; 87086; 93005; 94640; 99283; G0378; J1650; J1940; J7613; Q9967

== ENCOUNTER 2021-01-03 12:38 | Emergency (ER) | payer OTHER, SELFPAY ==
[2017-08-17 13:10] VITALS: BMI 34.3
[2021-01-03] VITALS (11 sets, daily range): BP systolic 118–158; BP diastolic 55–91; PULSE 45–99; RESP 16–28; TEMP 37.2; O2SAT 87–96; BMI 34.3
--- NOTE | 2021-01-03 12:59 | PC.NURSE ---
Pt states she in no way want to be given remdesivir because it causes renal failure per her friend that just had covid.
--- NOTE | 2021-01-03 14:13 | ED_ITS ---
HPI - General Adult General Chief complaint: Upper Respiratory Symptoms Stated complaint: hard time breathing Time Seen by Provider: 01/03/21 13:57 Source: patient Mode of arrival: Ambulatory Limitations: no limitations History of Present Illness HPI narrative: 55-year-old female. Is COVID positive. Has had symptoms for the past 12 days. Has been seen in outside facility. He did receive monoclonal antibody infusion approximately 1 week ago. Is here for evaluation of continued shortness of breath. No chest pain. She contacted her primary doctor to try to get oxygen set up at home but was told to come to the ER. Related Data Home Medications Medication Instructions Recorded Confirmed Fish Oil 1 cap PO DAILY 08/17/17 08/17/17 Vitamin C 1 tab PO DAILY 08/17/17 08/17/17 Vitamin D3 1 cap PO DAILY 08/17/17 08/17/17 calcium carb-magnesium carb 1 tab PO DAILY 08/17/17 08/17/17 evening primrose oil 500 mg capsule 1 cap PO DAILY 08/17/17 08/17/17 multivitamin 1 tab PO DAILY 08/17/17 08/17/17 mv-min-vit C 250 [id number] 1 tab PO DAILY 08/17/17 08/17/17 HCl-herb 124 12.5 mg chewable tablet (Immune Support) Allergies Allergy/AdvReac Type Severity Reaction Status Date / Time erythromycin base Allergy Verified 08/17/17 08:46 Penicillins Allergy Verified 08/17/17 08:46 Review of Systems Constitutional Constitutional: Reports fatigue and Reports fever(s) Cardiovascular Cardiovascular: Denies chest pain and Reports dyspnea Respiratory Respiratory: Reports cough and Reports dyspnea Gastrointestinal Gastrointestinal: Reports system reviewed and no additional complaints, except as documented Integumentary/Breasts Skin/Breast: Reports system reviewed and no additional complaints, except as documented Endocrine Endocrine: Reports fatigue Hematologic/Lymphatic On Anticoagulants: No Patient History Medical History ACL (anterior cruciate ligament) tear COPD (chronic obstructive pulmonary disease) Cyst, meniscus, knee Family History (Updated 08/17/17 @ 15:03 by Torri Mixon RN) Other Congestive heart failure Kidney disease Social History household members: none Smoking Status: Never smoker alcohol intake: never Smoking Status: Never smoker Substance Use Type: does not use Exam Initial Vital Signs Initial Vital Signs: Vital Signs Temperature 98.9 F 01/03/21 12:46 Pulse Rate 99 H 01/03/21 12:46 Respiratory Rate 16 01/03/21 12:46 Blood Pressure 118/55 L 01/03/21 12:46 Pulse Oximetry 87 L 01/03/21 12:46 Const General: cooperative and comfortable HENMT Head: normal to inspection and normocephalic Resp Effort & Inspection: tachypneic Cardio Rate: regular rate Rhythm: regular rhythm GI Inspection: normal to inspection Skin General: no rashes or lesions noted Neuro General: patient alert, patient awake and patient oriented x3 Cognition: normal cognition Extrem General: No edema Psych Appearance: grossly normal and well kempt Scores GCS [place] coma scale eye opening: Spontaneous [place] coma scale verbal response: Orientated [place] coma scale motor response: Obey commands [place] coma scale total score: 15 Course Orders Ordered: ED Orders 01/03/21 14:00 EKG-12 Lead Routine 01/03/21 14:20 COVID19 -Nasal swab/Pre-Proc Stat Vital Signs Vital signs: Vital Signs - 8 hr 01/03/21 12:46 01/03/21 13:38 01/03/21 14:00 Temperature 98.9 F Pulse Rate 99 H 65 63 Respiratory Rate 16 24 Blood Pressure 118/55 L 134/65 Pulse Oximetry 87 L 94 96 01/03/21 14:01 01/03/21 14:30 01/03/21 14:31 Temperature Pulse Rate 63 67 53 L Respiratory Rate 22 28 H 24 Blood Pressure 138/82 158/60 H Pulse Oximetry 96 94 94 01/03/21 15:00 Temperature Pulse Rate 52 L Respiratory Rate 24 Blood Pressure 144/76 H Pulse Oximetry 94 Medical Decision Making Lab Data Labs: Lab Results 01/03/21 Range/Units 14:20 SARS-CoV-2 (PCR) Positive H (Negative) MDM Narrative Medical decision making narrative: Patient is 12 days into her symptoms. Has received a monoclonal antibody. She asked for another infusion the monoclonal antibody however she is not eligible for this. She did not want remdesivir. Patient was hypoxic and tachypneic upon arrival. This did improve with oxygen by nasal cannula. Patient was asking for the ?cure? of COVID. I informed that there was no cure. There were medications that we use to try to support her own immune system and fighting this disease process. She asked about ivermectin and hydrochloroquine and I informed her that I would not write her a prescription for these medications. Patient did not want to be admitted to the hospital. Informed that she was hypoxic in that she did need oxygen. She asked if we could get oxygen set up for her as an outpatient. Working with respiratory therapy we were able to set her up with oxygen. Paperwork was signed by myself. She was discharged home with oxygen. She was given return precautions. She was alert oriented x3. GCS of 15 in my opinion had capacity to make decisions. She was given strict return precautions. Patient does have COVID-19 and does require oxygen secondary to her hypoxia on room air. Discharge Plan Departure Patient Disposition: Home Clinical Impression: COVID-19, Hypoxia Instructions: DI for COVID-19 (Suspected or Confirmed ) Activity Restrictions/Additional Instructions: You do have COVID-19 and it is causing your oxygen saturations to be low. Like we discussed while you were here in the emergency department there is no ?cure ?for this disease process. There are things that we are trying in order to help your own immune system flank the disease. How long you are going to have symptoms is variable. It could be several weeks. You do require oxygen. If you do not have a way of checking your oxygen at home I do recommend that you purchase a pulse oximeter. You can purchase this either online or at a local drug store. We were able to set up oxygen for you through [facility]. Per respiratory therapist here at the hospital it will be later this evening when they can come to bring you the oxygen. Until then you were given oxygen here at the ER. I recommend that you use 3 L by nasal cannula. If you are respiratory status worsens or if your oxygen saturations are less than 90% for extended periods of time you do need to return to the emergency department for further evaluation. Prescriptions: No Action evening primrose oil 500 mg Capsule 1 cap PO DAILY 0RF [id number] [Immune Support] 250-12.5 mg Tablet,Chewable 1 tab PO DAILY 0RF Fish Oil 1 cap PO DAILY 0RF Vitamin C 1 tab PO DAILY 0RF Vitamin D3 1 cap PO DAILY 0RF calcium carb-magnesium carb 1 tab PO DAILY 0RF multivitamin 1 tab PO DAILY 0RF Referrals: Cat Barrios DO [Primary Care Provider] -
[2021-01-03 15:28] LABS: COVID19 -Nasal RAPID POSITIVE (Negative)
--- NOTE | 2021-01-03 16:50 | PC.NURSE ---
Pt and I had a long descriptive conversation regarding COVID and risks and benefits of vaccine and antivirals which she refused here in the ED today. Sent home on oxygen and [employer] set up by respiratory to meet pt at her house from [id number]. Sent home with 4 O2 tanks and educated on use. No further questions from pt on departure.
== END 2021-01-03 17:15 | disposition home or self-care (01) ==
PROVIDERS: Emergency Provider Emergency Medicine; PCP Family Medicine
DX: U07.1 COVID-19 (principal); R09.02 Hypoxemia; R00.1 Bradycardia, unspecified
CPT/HCPCS: 87635; 93005; 99283; 99284; C9803